=== PATIENT | female | born 1965 | race Caucasian/White ===

== ENCOUNTER 2022-03-07 20:03 | Emergency (ER) | payer BC ==
[~2022-03-07] VITALS: Ht 160 cm; Wt 68.0 kg
[~2022-03-07 20:03] MED LIST: no meds
[2022-03-07 20:53] VITALS: BP_SYST 135
--- NOTE | 2022-03-07 23:05 | NUR ---
recieved pt restiing in bed pt states she has migraines. vitals done BPs 130/77 HR -77 SPO2-100% RR-25
--- NOTE | 2022-03-08 00:30 | NUR ---
NS 1L STARTED AND END ENDED AT 0130 HRS
[2022-03-08] MEDS ORDERED: NACL 0.9% 1,000 ML IV ONE (00:45)
[2022-03-08] MEDS ORDERED: METOCLOPRAMIDE HCL 10 MG/2 ML VIAL IVP ONE (00:45)
[2022-03-08 01:00] VITALS: BP_SYST 101
[2022-03-08] MEDS ORDERED: KETOROLAC TROMETHAMINE 30 MG VIAL IVP ONE (01:45)
== END 2022-03-08 03:15 | disposition home or self-care (01) ==
LOC: SED 20:03
DX: G43.009 Migraine without aura, not intractable, without status migrainosus (principal); R11.2 Nausea with vomiting, unspecified; M54.2 Cervicalgia; Z79.899 Other long term (current) drug therapy
CPT/HCPCS: 99283; 96374; 96361; J2765; J7030